=== PATIENT | male | born 1950 ===

== ENCOUNTER 2023-11-29 05:20 | Day surgery (SDC) | payer OTHER ==
[~2023-11-29 05:20] MED LIST: DAILY VALUE1 EACH PO; INTEGRA F CAPS1 EACH PO; NEURONTIN300 MG PO
[2023-11-29] MEDS ORDERED: MIDAZOLAM HCL 2 MG/2 ML VIAL IV ONE (08:30)
[2023-11-29] MEDS ORDERED: DIPHENHYDRAMINE HCL 50 MG/ML VIAL 1ML IV ONE (08:30)
[2023-11-29] MEDS ORDERED: fentaNYL CITRATE 50 MCG/ML AMPUL IV PUSH ONE (08:30)
== END 2023-11-29 09:32 | disposition home or self-care (01) ==
LOC: AMB-ENDOS 05:20 → CIR.AMB 14:00
PROVIDERS: ATTEND Colon & Rectal Surgery
DX: D37.5 Neoplasm of uncertain behavior of rectum (principal); Z85.048 Personal history of other malignant neoplasm of rectum, rectosigmoid junction, and anus; K64.8 Other hemorrhoids

== ENCOUNTER 2024-04-02 17:57 | Inpatient (IN) | payer OTHER ==
[~2024-04-02] VITALS: Ht 170.2 cm; Wt 59.0 kg
[~2024-04-02 17:57] MED LIST changes: +ABANEU-SL TABL1 EACH SL; +INTESTINEX680 M1 PO; +MIDODRINE HCL5 MG PO; +PRE PROTEIN1 EACH PO
--- NOTE | 2024-04-02 18:09 | NUR ---
SE RECIBE PACIENTE ORIENTADO EN PERSONA ACOMPANADO DE ESPOSA Y PERSONAL DE AMBULANCIA CON BRITT CATETER ELIMINANDO LIQUIDO COLOR HANEY OSCURO DESDE HACE DOS LITTLE. SE LE REMOVIO TUMOR EN COLON EL , DESDE JENNIFER FECHA TIENE BRITT.
[2024-04-02] MEDS ORDERED: 0.9 % SODIUM CHLORIDE 1,000 ML IV SCH ×2 (18:15→20:15)
[2024-04-02] MEDS ORDERED: CEFTRIAXONE SODIUM 2,000 MG VIAL IV ONE (18:15)
[2024-04-02] MEDS ORDERED: CEFTRIAXONE SODIUM 2,000 MG VIAL ONE (18:31)
[2024-04-02 19:23] LABS: HEMATOCRIT 39.1 % (39.0-48.0); HEMOGLOBIN 12.8 g/dL (13-16.00); MEAN CELL VOLUME 97.2 fL (80.0-100.00); MEAN CORPUSCULAR HEMOGLOBIN 31.9 pg (27.00-32.0); MEAN CORPUSCULAR HGB CONC 32.8 g/dl (32.0-36.0); PLATELET COUNT 259 K/uL (150-450); RED BLOOD COUNT 4.02 M/uL (4.00-6.00); RED CELL DISTRIBUTION WIDTH 16.7 % (11.5-14.5)
--- NOTE | 2024-04-02 19:29 | NUR ---
SE ORIENTA FAMILIAR SOBRE [place] MEDICO EL CUAL REFIERE ENTENDER.SE LE EXTRAEN MUESTRAS BAJO MEDIDAS ASEPTICAS,SE CANALIZA Y SE ADMINISTRAN MEDICAMENTOS.PTE CON BRITT.
[2024-04-02 19:51] LABS: INR 1.14; PARTIAL THROMBOPLASTIN TIME 30.2 SECONDS (22.0-34.0); PROTHROMBIN TIME 11.9 SECONDS (9.0-11.5)
[2024-04-02 19:57] LABS: ALBUMIN 1.9 gm/dL (3.4-5.0); BILIRUBIN TOTAL 0.65 mg/dL (0.3-1.2); CREATININE SERUM 0.55 mg/dL (0.70-1.30); GFR 146.02; GLOBULINA 5.8 G/DL (2.4-3.5); POTASSIUM 4.43 mEq/L (3.5-5.1); TOTAL PROTEIN 7.7 gm/dL (6.4-8.2)
[2024-04-02] MEDS ORDERED: EMOLLIENT COMBINATION NO.92 2.5 OZ BOTTLE TOP SCH (20:10)
[2024-04-02 20:19] LABS: URINE APPEARANCE Turbid; URINE BILIRRUBIN Small (NEGATIVE); URINE BLOOD Small; URINE COLOR Red; URINE GLUCOSE Negative (NEGATIVE); URINE LEUKOCYTE Large; URINE NITRATE Positive; URINE PROTEIN 30 (NEGATIVE); URINE UROBILINOGEN 0.2 E.U./dl
[2024-04-02 20:23] LABS: URINE EPITHELIAL CELLS 82.3 uL (0.0-38.8)
[2024-04-02] MEDS ORDERED: FAMOTIDINE/PF 20 MG/2 ML VIAL IV SCH (21:00)
[2024-04-02 21:06] LABS: URINE BACTERIA > 9821.5 uL (0.0-1933); URINE RBC > 10558.9 uL (0.0-20.8); URINE YEAST MODERATE /hpf
[2024-04-02] MEDS ORDERED: FAMOTIDINE/PF 20 MG/2 ML VIAL ONE (21:21)
[2024-04-02 22:25] LABS: COL EPI 72 SECONDS (82-175)
[2024-04-02] MEDS ORDERED: DIPHENHYDRAMINE HCL 50 MG/ML VIAL 1ML ONE (23:49)
[2024-04-03] MEDS ORDERED: DIPHENHYDRAMINE HCL 50 MG/ML VIAL 1ML IV ONE ×2 (00:45→14:30)
[2024-04-03] MEDS ORDERED: EMOLLIENT COMBINATION NO.92 2.5 OZ BOTTLE TOP SCH (09:00)
[2024-04-03] MEDS ORDERED: MEROPENEM 500 MG/VIAL VIAL IV SCH (12:00)
[2024-04-03] MEDS ORDERED: AMINO ACIDS/PROTEIN HYDROLYS 30 ML BLIST.PACK PO SCH (12:38)
[2024-04-03] MEDS ORDERED: MULTIVIT INFUSN,ADULT 4,VIT K 10 ML VIAL IV SCH (12:39)
[2024-04-03] MEDS ORDERED: LACTOBACILLUS ACIDOPHILUS 1 CAP CAP PO SCH (12:50)
[2024-04-03] MEDS ORDERED: CEFTRIAXONE SODIUM 1,000 MG VIAL IV SCH (17:00)
[2024-04-03] MEDS ORDERED: CEFTRIAXONE SODIUM 2,000 MG VIAL IV SCH (17:00)
[2024-04-03 17:57] LABS: ERYTHROCYTE SEDIMENTATION RATE 111 mm/hr; HEMATOCRIT 35.6 % (39.0-48.0); HEMOGLOBIN 12.1 g/dL (13-16.00); MEAN CORPUSCULAR HEMOGLOBIN 33.2 pg (27.00-32.0); MEAN CORPUSCULAR HGB CONC 33.9 g/dl (32.0-36.0); PLATELET COUNT 242 K/uL (150-450); RED BLOOD COUNT 3.64 M/uL (4.00-6.00); RED CELL DISTRIBUTION WIDTH 17.1 % (11.5-14.5)
[2024-04-03 19:01] LABS: ALBUMIN 2.1 gm/dL (3.4-5.0); BILIRUBIN TOTAL 0.49 mg/dL (0.3-1.2); CALCIUM 8.8 mg/dL (8.5-10.1); CREATININE SERUM 0.79 mg/dL (0.70-1.30); GFR 96.14; GLOBULINA 6.4 G/DL (2.4-3.5); MAGNESIUM 1.6 mg/dL (1.8-2.4); PHOSPHOROUS 2.7 mg/dL (2.5-4.9); POTASSIUM 4.44 mEq/L (3.5-5.1); TOTAL PROTEIN 8.5 gm/dL (6.4-8.2)
[2024-04-03 19:06] LABS: C-REACTIVE PROTEIN 4.29 MG/DL (0.00-0.29); TSH 35.6 uIU/mL (0.358-3.74)
[2024-04-03] MEDS ORDERED: TAMSULOSIN HCL 0.4 MG CAP PO SCH (21:00)
[2024-04-04] MEDS ORDERED: LEVOTHYROXINE SODIUM 100 MCG/VIAL VIAL IV NR (09:00)
[2024-04-04 09:18] LABS: HEMATOCRIT 31.4 % (39.0-48.0); HEMOGLOBIN 10.3 g/dL (13-16.00); MEAN CELL VOLUME 96.7 fL (80.0-100.00); MEAN CORPUSCULAR HEMOGLOBIN 31.7 pg (27.00-32.0); MEAN CORPUSCULAR HGB CONC 32.8 g/dl (32.0-36.0); PLATELET COUNT 224 K/uL (150-450); RED BLOOD COUNT 3.24 M/uL (4.00-6.00); RED CELL DISTRIBUTION WIDTH 16.5 % (11.5-14.5)
[2024-04-04 14:20] LABS: ALBUMIN 1.9 gm/dL (3.4-5.0); BILIRUBIN TOTAL 0.54 mg/dL (0.3-1.2); CALCIUM 8.7 mg/dL (8.5-10.1); CREATININE SERUM 0.63 mg/dL (0.70-1.30); GFR 124.83; MAGNESIUM 1.6 mg/dL (1.8-2.4); PHOSPHOROUS 2.3 mg/dL (2.5-4.9); POTASSIUM 3.91 mEq/L (3.5-5.1); T4 TOTAL 6.25 UG/DL (4.5-12.1); TOTAL PROTEIN 7.9 gm/dL (6.4-8.2)
[2024-04-04 14:37] LABS: C-REACTIVE PROTEIN 4.22 MG/DL (0.00-0.29)
[2024-04-04] MEDS ORDERED: DIPHENHYDRAMINE HCL PO PRN (18:15)
[2024-04-05] MEDS ORDERED: LEVOTHYROXINE SODIUM 100 MCG TABLET PO SCH (06:00)
[2024-04-05] MEDS ORDERED: THIAMINE HCL 100 MG TABLET PO SCH (11:34)
[2024-04-05] MEDS ORDERED: MAGNESIUM SULFATE IN WATER 50 ML IV NR (11:45)
[2024-04-05] MEDS ORDERED: LACTULOSE 20 G/30 ML BLIST.PACK PO SCH (13:22)
[2024-04-06] MEDS ORDERED: DIPHENHYDRAMINE HCL 50 MG/ML VIAL 1ML ONE (01:54)
[2024-04-06 12:21] LABS: HEMOGLOBIN 9.4 g/dL (13-16.00); MEAN CELL VOLUME 97.5 fL (80.0-100.00); MEAN CORPUSCULAR HEMOGLOBIN 32.7 pg (27.00-32.0); MEAN CORPUSCULAR HGB CONC 33.5 g/dl (32.0-36.0); PLATELET COUNT 200 K/uL (150-450); RED BLOOD COUNT 2.87 M/uL (4.00-6.00); RED CELL DISTRIBUTION WIDTH 16.4 % (11.5-14.5)
[2024-04-06 12:28] LABS: ERYTHROCYTE SEDIMENTATION RATE 46 mm/hr
[2024-04-06 12:29] LABS: CALCIUM 8.2 mg/dL (8.5-10.1); CREATININE SERUM 0.42 mg/dL (0.70-1.30); GFR 199.32; MAGNESIUM 1.8 mg/dL (1.8-2.4); POTASSIUM 3.39 mEq/L (3.5-5.1)
[2024-04-06 13:00] LABS: PHOSPHOROUS 1.9 mg/dL (2.5-4.9)
[2024-04-06] MEDS ORDERED: PIPERACILLIN/TAZOBACTAM SODIUM 3.375 GM in 0.9 % SODIUM CHLORIDE 100 ML IV SCH (13:00)
[2024-04-06] MEDS ORDERED: POTASSIUM PHOS,M-BASIC-D-BASIC 3 MM/ML VIAL IV NR (15:15)
[2024-04-07] MEDS ORDERED: Cyanocobalamin/Mecobalamin 1 TAB.SL SL SCH (09:00)
[2024-04-07] MEDS ORDERED: POTASSIUM CHLORIDE 20MEQ/100ML H2O PB IV NR (12:46)
[2024-04-07] MEDS ORDERED: MAGNESIUM SULFATE IN WATER 50 ML IV NR (12:46)
[2024-04-07] MEDS ORDERED: SOD FERRIC GLUC COMPLX/SUCROSE 62.5 MG in 0.9 % SODIUM CHLORIDE 50 ML IV SCH (12:52)
[2024-04-09 09:09] LABS: HEMOGLOBIN 9.3 g/dL (13-16.00); MEAN CELL VOLUME 97.7 fL (80.0-100.00); MEAN CORPUSCULAR HEMOGLOBIN 33.6 pg (27.00-32.0); MEAN CORPUSCULAR HGB CONC 34.3 g/dl (32.0-36.0); PLATELET COUNT 179 K/uL (150-450); RED BLOOD COUNT 2.77 M/uL (4.00-6.00); RED CELL DISTRIBUTION WIDTH 16.8 % (11.5-14.5)
[2024-04-09 10:17] LABS: ALBUMIN 1.5 gm/dL (3.4-5.0); BILIRUBIN TOTAL 0.39 mg/dL (0.3-1.2); CALCIUM 8.2 mg/dL (8.5-10.1); CREATININE SERUM 0.54 mg/dL (0.70-1.30); GFR 149.14; GLOBULINA 4.6 G/DL (2.4-3.5); TOTAL PROTEIN 6.1 gm/dL (6.4-8.2)
[2024-04-09 10:27] LABS: C-REACTIVE PROTEIN 2.52 MG/DL (0.00-0.29)
[2024-04-09 10:28] LABS: TSH 12.5 uIU/mL (0.358-3.74)
[2024-04-09 10:36] LABS: ERYTHROCYTE SEDIMENTATION RATE 50 mm/hr
[2024-04-10] MEDS ORDERED: MELATONIN 5 MG TABLET PO SCH (21:00)
[2024-04-11 08:20] LABS: HEMATOCRIT 26.6 % (39.0-48.0); MEAN CELL VOLUME 98.9 fL (80.0-100.00); MEAN CORPUSCULAR HGB CONC 33.6 g/dl (32.0-36.0); PLATELET COUNT 162 K/uL (150-450); RED BLOOD COUNT 2.69 M/uL (4.00-6.00)
[2024-04-11 08:26] LABS: HEMOGLOBIN 8.9 g/dL (13-16.00)
[2024-04-11] MEDS ORDERED: FUROsemide 20 MG/2 ML VIAL IV SCH (09:00)
[2024-04-11 09:01] LABS: CALCIUM 8.2 mg/dL (8.5-10.1); CREATININE SERUM 0.57 mg/dL (0.70-1.30); GFR 140.12; MAGNESIUM 1.7 mg/dL (1.8-2.4); PHOSPHOROUS 2.8 mg/dL (2.5-4.9); POTASSIUM 4.19 mEq/L (3.5-5.1)
[2024-04-11] MEDS ORDERED: MAGNESIUM SULFATE IN WATER 50 ML IV NR (12:00)
[2024-04-12 12:00] LABS: HEMATOCRIT 39.5 % (39.0-48.0); HEMOGLOBIN 13.2 g/dL (13-16.00); MEAN CELL VOLUME 97.9 fL (80.0-100.00); MEAN CORPUSCULAR HEMOGLOBIN 32.7 pg (27.00-32.0); MEAN CORPUSCULAR HGB CONC 33.4 g/dl (32.0-36.0); PLATELET COUNT 177 K/uL (150-450); RED BLOOD COUNT 4.03 M/uL (4.00-6.00); RED CELL DISTRIBUTION WIDTH 16.7 % (11.5-14.5)
[2024-04-12] MEDS ORDERED: PROTEINEX-18 LI30 ML PO (13:05)
[2024-04-12] MEDS ORDERED: INTEGRA F CAPS1 EACH PO (13:05)
[2024-04-12] MEDS ORDERED: MELATONIN10 M2 PO (13:05)
[2024-04-12] MEDS ORDERED: SYNTHROID100 MCG PO (13:05)
[2024-04-12] MEDS ORDERED: DAILY VALUE1 EACH PO (13:05)
[2024-04-12] MEDS ORDERED: THIAMINE HCL100 MG PO (13:05)
[2024-04-12] MEDS ORDERED: ABANEU-SL TABL1 EACH SL (13:05)
[2024-04-12] MEDS ORDERED: TAMS0.4C PO (13:05)
[2024-04-12] MEDS ORDERED: INTESTINEX680 M1 PO (13:05)
[2024-04-12] MEDS ORDERED: PRE PROTEIN1 EACH PO (13:05)
== END 2024-04-12 20:04 | DRG 673 ==
LOC: ER 17:57 → SURG 20:27 → SURH 04-04 11:20
PROVIDERS: General Practice; Internal Medicine; ADMIT Internal Medicine Geriatric Medicine; ATTEND Internal Medicine Geriatric Medicine
PROC: BT43ZZZ Ultrasonography of Bilateral Kidneys (ICD-10-PCS; 2024-04-02)
PROC: B246ZZZ Ultrasonography of Right and Left Heart (ICD-10-PCS; 2024-04-02)
PROC: 0T2BX0Z Change Drainage Device in Bladder, External Approach (ICD-10-PCS; 2024-04-02)
PROC: 02HV33Z Insertion of Infusion Device into Superior Vena Cava, Percutaneous Approach (ICD-10-PCS; 2024-04-03)
PROC: 0JBR0ZZ Excision of Left Foot Subcutaneous Tissue and Fascia, Open Approach (ICD-10-PCS; principal; 2024-04-05)
PROC: 0JB80ZZ Excision of Abdomen Subcutaneous Tissue and Fascia, Open Approach (ICD-10-PCS; 2024-04-05)
PROC: 0JBR0ZZ Excision of Left Foot Subcutaneous Tissue and Fascia, Open Approach (ICD-10-PCS; 2024-04-11)
PROC: 30233N1 Transfusion of Nonautologous Red Blood Cells into Peripheral Vein, Percutaneous Approach (ICD-10-PCS; 2024-04-11)
DX: T83.511A Infection and inflammatory reaction due to indwelling urethral catheter, initial encounter (principal); L89.623 Pressure ulcer of left heel, stage 3; T81.42XA Infection following a procedure, deep incisional surgical site, initial encounter; T81.31XA Disruption of external operation (surgical) wound, not elsewhere classified, initial encounter; R78.81 Bacteremia; B37.89 Other sites of candidiasis; C18.9 Malignant neoplasm of colon, unspecified; E46 Unspecified protein-calorie malnutrition; N39.0 Urinary tract infection, site not specified; R31.29 Other microscopic hematuria; K70.30 Alcoholic cirrhosis of liver without ascites; F10.20 Alcohol dependence, uncomplicated; E86.0 Dehydration; D64.89 Other specified anemias; K66.8 Other specified disorders of peritoneum; R41.82 Altered mental status, unspecified; Y90.9 Presence of alcohol in blood, level not specified; E03.9 Hypothyroidism, unspecified; Z93.2 Ileostomy status; B96.29 Other Escherichia coli [E. coli] as the cause of diseases classified elsewhere; B96.1 Klebsiella pneumoniae [K. pneumoniae] as the cause of diseases classified elsewhere; B95.2 Enterococcus as the cause of diseases classified elsewhere; B96.89 Other specified bacterial agents as the cause of diseases classified elsewhere; Z74.01 Bed confinement status; Z87.891 Personal history of nicotine dependence; Z68.20 Body mass index [BMI] 20.0-20.9, adult

== ENCOUNTER 2024-07-31 22:18 | Emergency (ER) | payer OTHER ==
[~2024-07-31] VITALS: Ht 152.4 cm; Wt 49.9 kg
[~2024-07-31 22:18] MED LIST changes: +MELATONIN10 M2 PO; +PROTEINEX-18 LI30 ML PO; +SYNTHROID100 MCG PO; +TAMS0.4C PO; +THIAMINE HCL100 MG PO
[2024-08-01] MEDS ORDERED: 0.9 % SODIUM CHLORIDE 1,000 ML IV ONE (00:45)
[2024-08-01 01:29] LABS: URINE APPEARANCE Clear; URINE BILIRRUBIN Negative (NEGATIVE); URINE BLOOD Negative; URINE COLOR Dark Yellow; URINE GLUCOSE Negative (NEGATIVE); URINE KETONE Trace (NEGATIVE); URINE LEUKOCYTE Negative; URINE NITRATE Negative; URINE PROTEIN 30 (NEGATIVE); URINE UROBILINOGEN 0.2 E.U./dl
[2024-08-01 01:34] LABS: URINE EPITHELIAL CELLS 6.1 uL (0.0-38.8); URINE WBC 26.5 uL (0.0-23.2)
[2024-08-01 01:43] LABS: INR 1.1; PROTHROMBIN TIME 11.9 SECONDS (9.0-11.5)
[2024-08-01 01:48] LABS: HEMATOCRIT 36.6 % (39.0-48.0); HEMOGLOBIN 12.4 g/dL (13-16.00); MEAN CELL VOLUME 101.1 fL (80.0-100.00); MEAN CORPUSCULAR HEMOGLOBIN 34.2 pg (27.00-32.0); MEAN CORPUSCULAR HGB CONC 33.9 g/dl (32.0-36.0); PLATELET COUNT 250 K/uL (150-450); RED BLOOD COUNT 3.62 M/uL (4.00-6.00); RED CELL DISTRIBUTION WIDTH 14.4 % (11.5-14.5)
[2024-08-01 01:49] LABS: ALBUMIN 2.3 gm/dL (3.4-5.0); BILIRUBIN TOTAL 0.59 mg/dL (0.3-1.2); BILIRUBIN,CONJUGATED 0.21 mg/dL (0.0-0.2); BILIRUBIN,UNCONJUGATED 0.38 mg/dL (0.0-0.6); CALCIUM 9.2 mg/dL (8.5-10.1); CREATININE SERUM 1.07 mg/dL (0.70-1.30); GFR 67.74; GLOBULINA 5.2 G/DL (2.4-3.5); POTASSIUM 4.38 mEq/L (3.5-5.1); TOTAL PROTEIN 7.5 gm/dL (6.4-8.2)
[2024-08-01 02:15] LABS: URINE CAST 1.37 uL (0.0-1.40)
[2024-08-01] MEDS ORDERED: PIPERACILLIN/TAZOBACTAM SODIUM 3.375 GM VIAL IV STA (04:24)
[2024-08-01] MEDS ORDERED: 0.9 % SODIUM CHLORIDE 1,000 ML IV SCH (18:30)
[2024-08-01] MEDS ORDERED: ENALAPRILAT DIHYDRATE 1.25 MG/ML VIAL IV PRN (18:30)
[2024-08-01] MEDS ORDERED: ACETAMINOPHEN 500 MG GEL..CAP PO PRN (18:30)
[2024-08-01] MEDS ORDERED: CEFTRIAXONE SODIUM 2,000 MG in 0.9 % SODIUM CHLORIDE 100 ML IV ONE (18:45)
[2024-08-01] MEDS ORDERED: TEMAZEPAM 15 MG CAPSULE PO ONE (22:45)
[2024-08-02] MEDS ORDERED: DIPHENHYDRAMINE HCL 50 MG/ML VIAL 1ML IV ONE ×2 (02:15→18:30)
[2024-08-02] MEDS ORDERED: hydrOXYzine PAMOATE 50 MG CAPSULE PO ONE (05:15)
[2024-08-02] MEDS ORDERED: FAMOTIDINE/PF 20 MG in 0.9 % SODIUM CHLORIDE 8 ML IV PUSH SCH (09:00)
== END 2024-08-02 21:09 | disposition home or self-care (01) ==
LOC: ER 22:18
PROVIDERS: General Practice
DX: K94.09 Other complications of colostomy (principal); C18.9 Malignant neoplasm of colon, unspecified; C79.89 Secondary malignant neoplasm of other specified sites; Z74.01 Bed confinement status; I62.03 Nontraumatic chronic subdural hemorrhage; K70.9 Alcoholic liver disease, unspecified; I85.10 Secondary esophageal varices without bleeding; N40.0 Benign prostatic hyperplasia without lower urinary tract symptoms; E03.8 Other specified hypothyroidism
CPT/HCPCS: 36415; 71045; 74176; 74240; 93005; 96365; 96366; 99284; J0696; J1200; J2543; J3490